=== PATIENT | male | born 1990 | race Hispanic/Latino ===

== ENCOUNTER 2017-08-29 16:28 | Emergency (ER) | payer OTHER ==
[2017-08-29 16:59] VITALS: O2SAT 98
--- NOTE | 2017-08-29 18:20 | C.PDOC ---
History Of Present Illness 27yo male, presents to ED complaining of upper back pain and chest pain for the past couple days. Patient states he does heavy lifting. He denies any dizziness , abdominal pain, nausea, vomiting, weakness, numbness. No other complaints. Time Seen by Provider: 08/29/17 17:41 Chief Complaint (Nursing): Shortness Of Breath History Per: Patient History/Exam Limitations: no limitations Onset/Duration Of Symptoms: Days Current Symptoms Are (Timing): Still Present Past Medical History Reviewed: Historical Data, Nursing Documentation, Vital Signs Vital Signs: Last Vital Signs Temp 98.1 F 08/29/17 16:55 Pulse 80 08/29/17 16:55 Resp 16 08/29/17 17:40 BP 126/71 08/29/17 16:55 Pulse Ox 98 08/29/17 18:20 - Medical History PMH: Pneumothorax Surgical History: No Surg Hx Family History: States: Unknown Family Hx - Social History Hx Tobacco Use: Yes Hx Alcohol Use: No Hx Substance Use: Yes - Immunization History Hx Tetanus Toxoid Vaccination: No Hx Influenza Vaccination: No Hx Pneumococcal Vaccination: No Review Of Systems Except As Marked, All Systems Reviewed And Found Negative. Constitutional: Negative for: Fever Cardiovascular: Positive for: Chest Pain Respiratory: Negative for: Shortness of Breath Gastrointestinal: Negative for: Nausea, Vomiting Musculoskeletal: Positive for: Back Pain Neurological: Negative for: Weakness, Numbness Physical Exam - Physical Exam Appears: Non-toxic, No Acute Distress Skin: Normal Color, Warm Head: Atraumatic, Normacephalic Eye(s): bilateral: Normal Inspection Neck: Supple Chest: Symmetrical, No Deformity, No Tenderness Cardiovascular: Rhythm Regular Respiratory: Normal Breath Sounds Gastrointestinal/Abdominal: Normal Exam, Soft, No Tenderness Back: Normal Inspection, No Vertebral Tenderness, No Paraspinal Tenderness Extremity: Normal ROM, No Deformity Neurological/Psych: Oriented x3, Normal Speech, Normal Cognition ED Course And Treatment ECG: Interpreted By Me, Viewed By Me ECG Rhythm: Sinus Rhythm Rate From EC O2 Sat by Pulse Oximetry: 98 Medical Decision Making Medical Decision Making: Plan: -- CXR -- Motrin 600 mg PO Disposition - Disposition Referrals: [facility] [Outside] [facility] [Outside] Disposition: HOME/ ROUTINE Disposition Time: 18:30 Condition: GOOD Additional Instructions: Thank you for letting us take care of you today. The emergency medical care you received today was directed at your acute symptoms. If you were prescribed any medication, please fill it and take as directed. It may take several days for your symptoms to resolve. Return to the Emergency Department if your symptoms worsen, do not improve, or if you have any other problems. Please contact your doctor or call one of the physicians/clinics you have been referred to that are listed on the Patient Visit Information form that is included in your discharge packet. Bring any paperwork you were given at discharge with you along with any medications you are taking to your follow up visit. Our treatment cannot replace ongoing medical care by a primary care provider (PCP) outside of the emergency department. Thank you for allowing the [facility] team to be part of your care today. Follow up with the clinic this week for outpatient care and management. Prescriptions: Ibuprofen [Motrin] 600 mg PO Q6 PRN #20 tab PRN Reason: Pain, Moderate (4-7) Instructions: Back Pain (ED) Forms: [employer] (Bahamian) - Clinical Impression Clinical Impression: Back pain - Scribe Statement Chloe Armijo Provider Attestation: All medical record entries made by the Scribe were at my direction and personally dictated by me. I have reviewed the chart and agree that the record accurately reflects my personal performance of the history, physical exam, medical decision making, and the department course for this patient. I have also personally directed, reviewed, and agree with the discharge instructions and disposition.
[2017-08-29 18:58] VITALS: BP 114/72; PULSE 72; RESP 18; TEMP 97.7
--- NOTE | 2017-08-29 18:59 | RAD ---
HISTORY: r/o infiltrate COMPARISON: No prior. FINDINGS: LUNGS: No active pulmonary disease. PLEURA: No significant pleural effusion identified, no pneumothorax apparent. CARDIOVASCULAR: Normal. OSSEOUS STRUCTURES: No significant abnormalities. VISUALIZED UPPER ABDOMEN: Normal. OTHER FINDINGS: None. IMPRESSION: No interval acute cardiopulmonary disease appreciated.
--- NOTE | 2017-08-30 18:23 | CARD ---
APPROVED REPORT EKG Measurement Heart [id number] <Conclusion> Normal sinus rhythm Normal ECG
== END 2017-08-29 19:13 | disposition home or self-care (01) ==
LOC: C.ER 16:28
DX: M54.9 Dorsalgia, unspecified (principal); Z87.891 Personal history of nicotine dependence

== ENCOUNTER 2018-03-18 15:55 | Emergency (ER) | payer OTHER ==
[2018-03-18] MEDS ORDERED: Tetanus/Diphtheria Toxoids 0.5 ml Syringe IM ONE ×2 (16:16→16:27)
[2018-03-18] MEDS ORDERED: Oxycodone/Acetaminophen 5/325 mg Tab PO STA (16:16)
[2018-03-18 16:20] VITALS: BP 131/75; PULSE 63; TEMP 97.9; O2SAT 99
--- NOTE | 2018-03-18 16:21 | C.PDOC ---
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 Patient was lifting a pallet that had a long nail in it, the nail accidentally embedded into his left palm. Patient states it did not go completely through, he was able to pull out the nail completely. He is now complaining of pain to the middle of the hand but is able to move fingers without difficulty. Denies other associated symptoms. 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 PS WAS LIFTING PALLET THAT HAD LONG NAIL IN IT, NAIL ACCIDENTALLY EMBEDDED INTO PALM L HAND. PS DID NOT GO COMPLETELY THROUGH, ABLE TO PULL OUT NAIL COMPLETELY. CO PAIN TO MIDDLE OF HAND BUT ABLE TO MOVE FINGERS WO DIFF. DENIES OTHER ASSOC SX EXAM MILD DIST NONTOXIC EXT L HAND GEN TEND PALMAR SURFACE. NO ACTIVE BLEED, GROSS FB, GROSS DEFORM NO TENDON DYSFXN. MIN SWELL SKIN L HAND +PUNCTURE WOUND PALMAR SIDE B/W 2 & 3 METACARPAL. DORSAL SIDE WNL. NEURO NO FOCAL DEF REMAINDER NEG MDM PUNCTURE WOUND L HAND. ABX, XRAY, CONSULT HAND SURG Time Seen by Provider: 03/18/18 16:12 Chief Complaint (Nursing): Finger,Hand,&Wrist History Per: Patient History/Exam Limitations: no limitations Onset/Duration Of Symptoms: Hrs Current Symptoms Are (Timing): Still Present Recent travel outside of the [place]: No Past Medical History Reviewed: Historical Data, Nursing Documentation, Vital Signs Vital Signs: Last Vital Signs Temp 97.9 F 03/18/18 16:17 Pulse 63 03/18/18 16:17 Resp 18 03/18/18 16:17 BP 131/75 03/18/18 16:17 Pulse Ox 99 03/18/18 16:17 - Medical History PMH: Pneumothorax Surgical History: No Surg Hx Family History: States: Unknown Family Hx - Social History Hx Tobacco Use: Yes Hx Alcohol Use: No Hx Substance Use: Yes - Immunization History Hx Tetanus Toxoid Vaccination: No Hx Influenza Vaccination: No Hx Pneumococcal Vaccination: No Review Of Systems Except As Marked, All Systems Reviewed And Found Negative. Musculoskeletal: Positive for: Hand Pain Neurological: Negative for: Weakness, Numbness Physical Exam - Physical Exam Appears: Non-toxic, Other (Mild distress) Skin: Warm, Dry, Other (Left hand with positive puncture wound to palmar side between 2&3 metacarpal. Dorsal side within normal limits.) Head: Atraumatic, Normacephalic Eye(s): bilateral: Normal Inspection Oral Mucosa: Moist Extremity: Normal ROM (x4), Other (Left hand with generalized tenderness to palmar surface. No active bleeding, gross foreign body, gross deformity, tendon dysfxn. Minimal swelling.) Pulses: Left Radial: Normal, Right Radial: Normal Neurological/Psych: Oriented x3, Normal Speech, Normal Motor, Normal Sensation ED Course And Treatment - Other Rad L HAND X-Ray: Interpreted by Me (NEG) Progress - Re-Evaluation Re-evaluation Note: 03/18/18 16:29 PT DOES NOT WISH NARCOTIC RX. WILL DOSE MOTRIN, TYL 03/18/18 16:31 D/W DR ALBERT AWARE OF ER FINDINGS: ADVISES SOAKS SOAPY 3X DAILY, BACITRACIN, FU OFFICE. 03/18/18 16:33 HAND SOAKED IN BETADINE WASH, BACITRACIN APPLIED AND WOUND DRESSED. - Data Reviewed Data Reviewed: Diagnostic imaging Medical Decision Making Medical Decision Making: PUNCTURE WOUND L HAND. ABX, XRAY, CONSULT HAND SURG Disposition Counseled Patient/Family Regarding: Studies Performed, Diagnosis, Need For Followup, Rx Given - Disposition Referrals: Adali Albert MD [Staff Provider] - Disposition: HOME/ ROUTINE Disposition Time: 17:00 Condition: IMPROVED Additional Instructions: SOAK HAND IN WARM SOAPY WATER 10 MINS 3X DAY. APPLY NEOSPORIN AND KEEP BANDAGED. TAKE ANTIBIOTICS PRESCRIBED. FOLLOW UP HAND SURGEON THIS WEEK. Prescriptions: Acetaminophen [Tylenol Extra Strength] 2 tab PO Q6 #30 tablet Amoxicillin/Clavulanate [Augmentin 875 MG-125 MG] 1 tab PO BID #14 tab Ibuprofen [Motrin] 600 mg PO Q6 #30 tab levoFLOXacin [Levaquin] 500 mg PO DAILY #6 tab Instructions: Wound Care (DC) Forms: [employer] (Maori) - Clinical Impression Clinical Impression: Puncture wound, hand - Scribe Statement The provider has reviewed the documentation as recorded by the Scribe Lee Hanson All medical record entries made by the Scribe were at my direction and personally dictated by me. I have reviewed the chart and agree that the record accurately reflects my personal performance of the history, physical exam, medical decision making, and the department course for this patient. I have also personally directed, reviewed, and agree with the discharge instructions and disposition.
[2018-03-18] MEDS ORDERED: Oxycodone/Acetaminophen 5/325 mg Tab ONE (16:26)
[2018-03-18] MEDS ORDERED: Bacitracin 500 Units/gm Oint Foilpak UD TOP ONE (16:33)
[2018-03-18] MEDS ORDERED: Amoxicillin-Clav 875-125 mg Tab PO STA (16:46)
--- NOTE | 2018-03-18 16:51 | RAD ---
PROCEDURE: Left Hand Radiographs. HISTORY: NAIL PUNCTURE INJURY RO FX COMPARISON: None. FINDINGS: BONES: Normal. No fracture. No cortical destructive changes. JOINTS: Normal. No osteoarthritic changes. SOFT TISSUES: No evidence of subcutaneous air or radiopaque foreign body seen. . OTHER FINDINGS: None. IMPRESSION: Unremarkable radiographs left hand.
[2018-03-18] MEDS ORDERED: Amoxicillin-Clav 875-125 mg Tab PO ONE (16:55)
[2018-03-18] MEDS ORDERED: Bacitracin 500 Units/gm Oint Foilpak UD ONE (17:21)
[2018-03-18 17:28] VITALS: RESP 16
== END 2018-03-18 17:28 | disposition home or self-care (01) ==
LOC: C.ER 15:55
DX: S61.432A Puncture wound without foreign body of left hand, initial encounter (principal); W45.0XXA Nail entering through skin, initial encounter; Y92.89 Other specified places as the place of occurrence of the external cause; Y99.0 Civilian activity done for income or pay; Z23 Encounter for immunization